=== PATIENT | male | born 1945 | race Caucasian/White ===

== ENCOUNTER 2017-10-04 14:03 | Day surgery (SDC) | payer OTHER ==
[~2017-10-04] VITALS: Ht 188 cm; Wt 108.0 kg
[~2017-10-04 14:03] MED LIST: AMOX1XR PO; ATEN25 PO; ATEN50 PO; CEPH500 PO; LISHYD2025 PO; LISI20 PO; NEBI10 PO; TESTTP TOP; VITAMINS
== END 2017-10-04 17:01 | disposition home or self-care (01) ==
LOC: ORSCSDS 14:03
PROVIDERS: Orthopaedic Surgery
PROC: 01N50ZZ Release Median Nerve, Open Approach (ICD-10-PCS; principal; 2017-10-04 15:30)
DX: G56.01 Carpal tunnel syndrome, right upper limb (principal); I10 Essential (primary) hypertension; Z79.899 Other long term (current) drug therapy
CPT/HCPCS: J0360; J0690; J2250

== ENCOUNTER 2019-08-23 09:02 | Day surgery (SDC) | payer OTHER, MEDICARE ==
[~2019-08-23] VITALS: Ht 188 cm; Wt 112.1 kg
[~2019-08-23 09:02] MED LIST changes: +LATA.005SO BOTHEYES
--- NOTE | 2019-08-23 09:34 | NUR ---
Ambulatory in Day Surgery History, Chart, Medications and Allergies reviewed before start of procedure.Lungs clear T/O to Auscultation. Patient confirms NPO status and agrees with scheduled surgery. Patient reports completing Chlorhexadine shower X2 prior to admission to hospital.Surgical site prepped with 2% Chlorhexidine cloth wipe.NOZYN AND PERIDEX DONE PER ORTH PROTOCOL.
--- NOTE | 2019-08-23 15:21 | NUR ---
AMBULATING AMBULATING IN [facility] WITH PHYSICAL THERAPY
--- NOTE | 2019-08-23 18:46 | NUR ---
SUMMARY PATIENT REPORTS PAIN IS 1-2/10. TOLERATING REGULAR DIET WITHOUT NAUSEA. PATIENT DENIES NUMBNESS OR TINGLING TO LEGS. AMBULATED TO BATHROOM WITH STANDBY ASSIST
[2019-08-24 04:25] LABS: BASOPHILS ABSOLUTE AUTO 0.01 K/mm3 (0.00-0.23); BASOPHILS PERCENT AUTO 0 % (0-2); EOSINOPHILS ABSOLUTE AUTO 0.04 K/mm3 (0.00-0.68); EOSINOPHILS PERCENT AUTO 0 % (0-6); Hematocrit 36.5 % (37.0-53.0); Hemoglobin 12.5 g/dL (13.5-17.5); IMMATURE GRAN ABSOLUTE AUTO 0.08 K/mm3 (0.00-0.10); IMMATURE GRAN PERCENT AUTO 1 % (0-1); LYMPHOCYTES ABSOLUTE AUTO 1.33 K/mm3 (0.84-5.20); LYMPHOCYTES PERCENT AUTO 10 % (21-46); MONOCYTES ABSOLUTE AUTO 1.14 K/mm3 (0.16-1.47); MONOCYTES PERCENT AUTO 9 % (4-13); Mean Corpuscular HGB 29.6 pg (26.0-34.0); Mean Corpuscular HGB Conc 34.2 g/dL (31.5-36.5); Mean Corpuscular Volume 86 fL (80-100); Mean Platelet Volume 10.2 fL (9.1-12.4); NEUTROPHILS ABSOLUTE AUTO 10.58 K/mm3 (1.96-9.15); NEUTROPHILS PERCENT AUTO 80 % (41-73); Platelet Count 145 K/mm3 (150-400); RDW Coefficient Variation 13.2 % (11.7-14.2); RDW Standard Deviation 41.2 fL (35.1-46.3); Red Blood Cell Count 4.23 M/mm3 (4.30-5.90); White Blood Cell Count 13.18 K/mm3 (4.00-11.30)
[2019-08-24 04:45] LABS: Anion Gap 7 mmol/L (6-16); Blood Urea Nitrogen 16 mg/dL (8-24); Bun/Creatinine Ratio 27.3 (12.0-20.0); CO2, Blood 28 mmol/L (21-32); Calcium, Blood 8.4 mg/dL (8.5-10.1); Chloride, Blood 98 mmol/L (98-108); Creatinine, Blood 0.59 mg/dL (0.60-1.20); Glomerular Filtration Rate >60 (60-); Glucose, Blood 149 mg/dL (70-99); Magnesium, Blood 1.9 mg/dL (1.6-2.4); Potassium, Blood 3.9 mmol/L (3.5-5.5); Sodium, Blood 133 mmol/L (136-145)
--- NOTE | 2019-08-24 06:22 | NUR ---
SHIFT SUMMARY LYING IN SEMI FOWLERS WITH EYES CLOSED. HAS RESTED WELL THIS SHIFT. PAIN WELL MANAGED WITH SCHEDULED AND PRN PAIN MEASURES. IVF SL AFTER 0300 ABX, TOLERATING PO WELL AND MAKING ADEQUATE URINE. DENIES FURTHER NEEDS OR WANTS AT THIS TIME. SAFETY MEASURES IN PLACE. WILL GIVE HAND OFF TO ONCOMING SHIFT USING SBAR.
[2019-08-24] MEDS ORDERED: ASPI325 PO (09:56)
[2019-08-24] MEDS ORDERED: OXYC5 PO (09:57)
[2019-08-24] MEDS ORDERED: PROM25 PO (09:57)
--- NOTE | 2019-08-24 10:55 | NUR ---
DISCHARGE PT PROVIDED WITH WRITTEN AND VERBAL DISCHARGE INSTRUCTIONS. PT AND HIS SPOUSE REPORTED UNDERSTANDING. DRESSINGS PROVIDED. VSS. PT ESCORTED OUT AT APPROXIMATELY 1100.
== END 2019-08-24 11:49 | disposition home or self-care (01) ==
LOC: ORSCMMR 09:02 → ORD 10:30 → ORSCMMR 10:50 → SURS 13:49 → ORSCMMR 08-24 11:49
PROVIDERS: Orthopaedic Surgery
PROC: 8E0YXBZ Computer Assisted Procedure of Lower Extremity (ICD-10-PCS; principal; 2019-08-23 10:50)
PROC: 0SRD0J9 Replacement of Left Knee Joint with Synthetic Substitute, Cemented, Open Approach (ICD-10-PCS; principal; 2019-08-23 10:50)
DX: M17.12 Unilateral primary osteoarthritis, left knee (principal); I10 Essential (primary) hypertension; E78.5 Hyperlipidemia, unspecified; Z79.899 Other long term (current) drug therapy; Z87.891 Personal history of nicotine dependence; Z23 Encounter for immunization
CPT/HCPCS: 36415; 73560-LT; 80048; 83735; 85025; 88300; 90686; 97110; 97116; 97162; C1713; C1776; J0171; J0690; J0735; J1100; J1885; J2250; J2405; J2704; J2795; J3010; J7120

== ENCOUNTER → 2022-04-14 | Outpatient (CLI) | payer MEDICARE ==
[~2022-04-14] MED LIST changes: +ASPI325 PO; +OXYC5 PO; +PROM25 PO
== END | disposition home or self-care (01) ==
LOC: PLD 11:43 → LAB SHORT 11:43
DX: L81.4 Other melanin hyperpigmentation (principal)
CPT/HCPCS: 88305

== ENCOUNTER 2023-04-26 09:39 | Day surgery (SDC) | payer MEDICARE ==
[~2023-04-26] VITALS: Ht 188 cm; Wt 112.7 kg
[2023-04-26] MEDS ORDERED: METF500 PO (10:11)
[2023-04-26] MEDS ORDERED: AMLODIPINE-OLM1 EAC2 PO (10:14)
[2023-04-26] MEDS ORDERED: ERGO50000 PO (10:15)
[2023-04-26] MEDS ORDERED: MELO7.5 PO (10:15)
[2023-04-26 11:33] VITALS: BP 114/80
--- NOTE | 2023-04-26 11:35 | NUR ---
04/26/23 Esme Modi RHYTHM STRIP IN PROCEDURE WAS CONSISTENT WITH PATIENT'S HISTORY, VERIFIED WITH DR SAM, PATIENT REPORTS NO SYMPTOMS, OK TO DISCHARGE PER DR SAM.
== END 2023-04-26 11:35 | disposition home or self-care (01) ==
LOC: ORSCSDS 09:39
PROVIDERS: Internal Medicine Gastroenterology
PROC: 0DBH8ZX Excision of Cecum, Via Natural or Artificial Opening Endoscopic, Diagnostic (ICD-10-PCS; principal; 2023-04-26 11:00)
DX: Z12.11 Encounter for screening for malignant neoplasm of colon (principal); Z86.010 Personal history of colon polyps; D12.0 Benign neoplasm of cecum; K57.30 Diverticulosis of large intestine without perforation or abscess without bleeding; K64.8 Other hemorrhoids; E11.9 Type 2 diabetes mellitus without complications; J44.9 Chronic obstructive pulmonary disease, unspecified; I10 Essential (primary) hypertension; Z87.891 Personal history of nicotine dependence; Z79.84 Long term (current) use of oral hypoglycemic drugs; Z79.899 Other long term (current) drug therapy
CPT/HCPCS: 82947; 88305; J2704; J7120

== ENCOUNTER 2024-03-22 06:02 | Day surgery (SDC) | payer OTHER ==
[~2024-03-22] VITALS: Ht 188 cm; Wt 119.4 kg
[2024-03-22] VITALS (20 sets, daily range): BP systolic 110–159; BP diastolic 57–92
[~2024-03-22 06:02] MED LIST changes: +AMLO5 PO; +AMLODIPINE-OLM1 EAC2 PO; +ERGO50000 PO; +FURO40 PO; +KLOR-CON M1010 MEQ PO; +MELO7.5 PO; +METF500 PO
[2024-03-22] MEDS ORDERED: Vancomycin HCL 1,000 MG in NS 250 ML IV SCH ×2 (06:05→18:00)
[2024-03-22] MEDS ORDERED: Ropivacaine 0.5% HCl/Pf 123.125 MG,EPINEPHrine HCL 0.25 MG,Ketorolac Tromethamine 15 MG... INFIL SCH (06:05)
[2024-03-22] MEDS ORDERED: OxyCODONE HCL 10 MG TABCR PO SCH (06:05)
[2024-03-22] MEDS ORDERED: Acetaminophen 500 MG Tab PO SCH ×2 (06:05→08:00)
[2024-03-22] MEDS ORDERED: Lactated Ringer's 1,000 ML IV SCH ×2 (06:05→07:10)
[2024-03-22] MEDS ORDERED: CeFAZolin Sodium 3,000 MG in NS 100 ML IV SCH (06:05)
[2024-03-22] MEDS ORDERED: Chlorhexidine Mouth Care 15 ML UDC MT SCH (06:05)
[2024-03-22] MEDS ORDERED: Tranexamic Acid 100 ML IV SCH (06:12)
[2024-03-22] MEDS ORDERED: CeFAZolin Sodium 2,000 MG in NS 100 ML IV SCH ×2 (06:30→16:00)
[2024-03-22] MEDS ORDERED: OxyCODONE HCL 5 MG TAB PO PRN ×2 (07:05→07:10)
[2024-03-22] MEDS ORDERED: Promethazine HCl 25 MG Tab PO PRN (07:05)
[2024-03-22] MEDS ORDERED: Prochlorperazine Edisylate 10 mg Vial IV PRN (07:10)
[2024-03-22] MEDS ORDERED: Ondansetron HCl 2 MG / ML 2ML Vial IV PRN (07:10)
[2024-03-22] MEDS ORDERED: Magnesium Hydroxide Conc 10 ML UDC PO PRN (07:10)
[2024-03-22] MEDS ORDERED: Bisacodyl 10 MG Supp PR PRN (07:15)
[2024-03-22] MEDS ORDERED: HYDROmorphone HCl/Pf 1MG SYR IV PRN (07:15)
[2024-03-22] MEDS ORDERED: DiphenhydrAMINE HCL 25 MG Cap PO PRN (07:15)
[2024-03-22] MEDS ORDERED: Metoclopramide HCl 5MG / ML 2ML Vial IV PRN (07:15)
[2024-03-22] MEDS ORDERED: Etomidate 2MG / ML 10ML Vial ONE (07:28)
[2024-03-22] MEDS ORDERED: FentaNYL Citrate 50 MCG/ML 2 ML Injection ONE (07:53)
[2024-03-22] MEDS ORDERED: Vancomycin HCl 1000 MG ADDvantage ONE (08:29)
--- NOTE | 2024-03-22 08:52 | NUR ---
03/22/24 0852 Ney Jaquez TOTAL OF 3G ANCEF GIVEN AT 0805 BY ANESTHESIA
[2024-03-22] MEDS ORDERED: AmLODIPine Besylate 5 MG Tab PO SCH (09:00)
[2024-03-22] MEDS ORDERED: Atenolol 50 MG Tab PO SCH ×2 (09:00→21:00)
[2024-03-22] MEDS ORDERED: Potassium Chloride 20 MEQ TabCR PO SCH (09:00)
[2024-03-22] MEDS ORDERED: Furosemide 40 MG Tab PO SCH (09:00)
[2024-03-22] MEDS ORDERED: Lisinopril 20 MG Tab PO SCH (09:00)
[2024-03-22] MEDS ORDERED: Docusate Sodium 100 MG Cap PO SCH (09:00)
[2024-03-22] MEDS ORDERED: Cholecalciferol 1000 Unit Tablet (=25MCG) PO SCH (09:00)
[2024-03-22] MEDS ORDERED: Albumin (Human) 12.5gm/250ml 250 ML IV ONE (09:35)
[2024-03-22] MEDS ORDERED: CeFAZolin Sodium 1000 mg Vial ONE (10:08)
[2024-03-22] MEDS ORDERED: SuccINYLCHOLINE Chloride 100 MG/5 ML 5MLSYR ONE (10:08)
[2024-03-22] MEDS ORDERED: Phenylephrine HCl 100 MCG/ML-NS 10MLSYR (1MG/10ML) ONE (10:08)
[2024-03-22] MEDS ORDERED: Dexamethasone Sod Phos 10 MG/ML 1ML VIAL ONE (10:08)
[2024-03-22] MEDS ORDERED: Rocuronium Bromide 10 MG/ML 5ML Injection IV ONE (10:08)
[2024-03-22] MEDS ORDERED: Ondansetron HCl 2 MG / ML 2ML Vial ONE (10:08)
[2024-03-22] MEDS ORDERED: Phenylephrine HCl 10mg/ml 1 ml Vial ONE (10:08)
[2024-03-22] MEDS ORDERED: Glycopyrrolate 0.2 MG/ML 5ML VIAL ONE (10:08)
[2024-03-22] MEDS ORDERED: Sugammadex Sodium 200 MG/2ML SDV (100 MG/ML) ONE (10:08)
[2024-03-22] MEDS ORDERED: Lidocaine HCl 2% 20 ML MDV ONE (10:08)
--- NOTE | 2024-03-22 10:42 | NUR ---
"Spiritual Care | Family support Pt. is in surgery. Pts. Spouse and other family are in the waiting room. Considered matters of derrick and belief as aprt of a life review update. Both Pt. and Spouse are known to this press supervisor from the community. Will remain available to Pt. and family."
[2024-03-22] MEDS ORDERED: Metoprolol Tartrate 5 ML IV ONE (11:01)
[2024-03-22] MEDS ORDERED: Ketorolac Tromethamine 30mg Vial ONE (11:35)
[2024-03-22] MEDS ORDERED: Ketorolac Tromethamine 15mg Vial IV SCH (12:00)
--- NOTE | 2024-03-22 16:44 | NUR ---
Pt. is awake and welcomes my visit. Pt. is pleasant. Spouse is at beside. Both Pt. and spouse are known to this customer support analyst from the community. Facilitated an update of the Pts. condition. Pt. displays some evidence of still coming out of his anesthesia. Pt. is awaiting some personal therapy. Considered matters of derrick and belief. Pt. displayed evidence of being confident and hopeful. Prayed with Pt. Pt. and spouse verbalized gratitude for the spiritual care visit and welcomed this customer support analyst to return.
--- NOTE | 2024-03-22 19:24 | NUR ---
SHIFT SUMMARY POD0 L HATTIE, A/OX4, VSS, TOLERATING PO, WORKED WITH THERAPY, DENIES PAIN THIS SHIFT, SCANT VOID, BLADDER SCAN FOR 617 AND DSICUSSED RISKS AND PLAN WITH HIM REGARDING ACUTE RETENTION, PT ATTEMTPING TO AMBULATE TO ENCOURAGE SELF VOID BUT WILL STRAIGHT CATH IF HE IS UNABLE TO. NO OTHER EVENTS THIS SHIFT, CALL LIGHT IN [facility].
[2024-03-22] MEDS ORDERED: Latanoprost 0.005% Opth Soln 2.5 ML BOTHEYES SCH (21:00)
[2024-03-22] MEDS ORDERED: TAMS.4ER PO (21:34)
[2024-03-22] MEDS ORDERED: Tamsulosin HCl 0.4 MG Cap PO SCH (21:45)
[2024-03-23 04:21] VITALS: BP 114/69
[2024-03-23 04:40] LABS: BASOPHILS ABSOLUTE AUTO 0.01 K/mm3 (0.00-0.23); BASOPHILS PERCENT AUTO 0 % (0-2); EOSINOPHILS ABSOLUTE AUTO 0.03 K/mm3 (0.00-0.68); EOSINOPHILS PERCENT AUTO 0 % (0-6); Hematocrit 30.6 % (37.0-53.0); Hemoglobin 10.7 g/dL (13.5-17.5); IMMATURE GRAN ABSOLUTE AUTO 0.07 K/mm3 (0.00-0.10); IMMATURE GRAN PERCENT AUTO 1 % (0-1); LYMPHOCYTES ABSOLUTE AUTO 1.14 K/mm3 (0.84-5.20); LYMPHOCYTES PERCENT AUTO 10 % (21-46); MONOCYTES ABSOLUTE AUTO 1.21 K/mm3 (0.16-1.47); MONOCYTES PERCENT AUTO 11 % (4-13); Mean Corpuscular HGB 31.7 pg (26.0-34.0); Mean Corpuscular Volume 91 fL (80-100); Mean Platelet Volume 10.1 fL (9.1-12.4); NEUTROPHILS ABSOLUTE AUTO 9.03 K/mm3 (1.96-9.15); NEUTROPHILS PERCENT AUTO 79 % (41-73); Platelet Count 153 K/mm3 (150-400); RDW Coefficient Variation 14.9 % (11.7-14.2); RDW Standard Deviation 42.4 fL (35.1-46.3); Red Blood Cell Count 3.38 M/mm3 (4.30-5.90); White Blood Cell Count 11.49 K/mm3 (4.00-11.30)
[2024-03-23 05:08] LABS: Bun/Creatinine Ratio 27.3 (12.0-20.0); Calcium, Blood 8.3 mg/dL (8.5-10.1); Creatinine, Blood 0.59 mg/dL (0.60-1.20); Magnesium, Blood 1.9 mg/dL (1.6-2.4); Potassium, Blood 3.7 mmol/L (3.5-5.5)
--- NOTE | 2024-03-23 06:47 | NUR ---
SHIFT SUMMARY: ROSEANNE IS A&OX4. VSS, NO ACUTE EVENTS OVERNIGHT. PT UNABLE TO URINATE INDEPENDENTLY, STRAIGHT CATH SUCCESSFUL THIS AM, PLEASE SEE NOTE. DRESSING TO LEFT HIP C/D&I. HE IS TOLERATING PO INTAKE WELL, IV TO LEFT FOREARM PATENT, AND IS A STANDBY ASSIST WITH THE FWW AND GAIT BELT TO THE BATHROOM AND HALLWAYS. HE IS UP TO THE BEDSIDE RECLINER WITH THE CALL LIGHT IN REACH. EVER BERMUDEZ, SCDs, AND POLAR PACK IN PLACE. WILL GIVE REPORT TO DAY SHIFT RN.
[2024-03-23 08:26] VITALS: BP 114/55
[2024-03-23] MEDS ORDERED: Trimethoprim/Sulfamethoxazole DS Tab PO SCH (09:00)
[2024-03-23] MEDS ORDERED: Aspirin 81 MG Chew PO SCH (09:00)
[2024-03-23] MEDS ORDERED: OXAYDO5 M2 PO (09:11)
[2024-03-23] MEDS ORDERED: SULTRIDS PO (09:12)
[2024-03-23] MEDS ORDERED: PROM25 PO (09:12)
[2024-03-23] MEDS ORDERED: ASPI81CH PO (09:13)
--- NOTE | 2024-03-23 09:46 | NUR ---
Pt. is awake in bed and welcomes my visit. Pt. is mildly unsettled by having problems urinating overnight, but is otherwise pleasant. Facilitate an update with the Pt. who verbalizes he hopes to be able to go home today. Prayed with Pt. Pt. displays evidence of have a more uplifted spirit than when I first arrived. Pt. verbalized gratitude for the spiritual care visit. Met spouse in the hallway after I departed the room and made a brief affiirming connection.
--- NOTE | 2024-03-23 12:23 | NUR ---
DISCHARGE SUMMARY POD1 L POSTERIOR HATTIE, A/OX4, VSS, TOLERATING PO, DENIES PAIN, HAD SOME DIFFICULTY WITH VOIDING POST OP BUT WAS ABLE TO VOID THIS AM AND EMPTY MOST OF HIS BLADDER WITH A POST VOID RESIDUAL OF 90 ML TAKEN 30 MINUTES AFTER HE HAD VOIDED. DISCUSSED DISCHARGE VS STAYING LONGER WITH HIM AND HIS R/T HIS DIFFICULTY WITH VOIDING BUT BOTH PATIENT AND HIS SPOUSE REPORT FEELING READY TO GO HOME WITH DIRECTION TO F/U WITH HIS UROLOGIST SHOULD HE NOTICE ANY CHANGES IN HIS URINARY HABITS COMPARED TO HIS BASELINE. SURGICAL DRESSING CHANGED THIS AM BY SURGEON AT THE BEDSIDE WITH RN ASSISTANCE, SURGICAL SITE CARE ALSO PROVIDED DURING DRESSING CHANGE BY SURGEON WELL, THIS WAS THEN REITERATED WHILE DISCUSSED DC INSTRUCTIONS WITH HIM. CLEARED THERAPY PT AND OT. DISCUSSED DISCHARGE INFORMATION INCLUDING HOME CARE, MEDICATIONS, AND FOLLOW UP APPOINTMNETS. ALL QUESTIONS ANSWERED, PT REPORTS ALREADY HAVING HIS SCRIPTS THAT WERE PROVIDED PRE OP. PERSONAL ITEMS PACKED UP AND TAKE OUT, IV ACCESS REMOVED WHILE DISCUSSING DC INSTRUCTIONS. PT TAKEN OUT VIA WC TO PRIVATE AUTO TO GO HOME.
== END 2024-03-23 12:34 | disposition home or self-care (01) ==
LOC: ORSCMMR 06:02 → ORD 07:30 → ORSCMMR 07:30 → SURS 13:45 → ORSCMMR 13:45 → SURS 03-23 12:34 → ORSCMMR 03-23 12:34
PROVIDERS: Orthopaedic Surgery
PROC: 0SRB0JA Replacement of Left Hip Joint with Synthetic Substitute, Uncemented, Open Approach (ICD-10-PCS; principal; 2024-03-22 07:30)
DX: M16.12 Unilateral primary osteoarthritis, left hip (principal); Z96.652 Presence of left artificial knee joint; I10 Essential (primary) hypertension; Z79.899 Other long term (current) drug therapy; Z87.891 Personal history of nicotine dependence
CPT/HCPCS: 36415; 72170; 80048; 83735; 85025; 93005; 93010; 97110; 97116; 97162; 97165; 97535; A9270; C1713; C1776; J0171; J0330; J0690; J0735; J1100; J1885; J2371; J2405; J2795; J3010; J3370; J7050; J7120; P9045